=== PATIENT | male | born 1960 | race American Indian/Alaskan Native ===

== ENCOUNTER 2017-07-11 08:53 | Emergency (ER) | payer OTHER ==
[2017-07-11 09:08] VITALS: BP 135/81
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
== END 2017-07-11 13:11 | disposition home or self-care (01) ==
LOC: ED 08:53
DX: M54.5 Low back pain (principal); V89.2XXA Person injured in unspecified motor-vehicle accident, traffic, initial encounter; Y93.89 Activity, other specified; Y92.89 Other specified places as the place of occurrence of the external cause; Y99.8 Other external cause status
CPT/HCPCS: 99282